=== PATIENT | male | born 1990 | race Caucasian/White ===

== ENCOUNTER 2018-02-03 23:11 | Emergency (ER) | payer SELFPAY ==
[2018-02-03 23:31] VITALS: BP 150/92
== END 2018-02-04 02:30 | disposition left against medical advice (07) ==
LOC: ED 23:11
DX: R07.9 Chest pain, unspecified (principal); Z53.21 Procedure and treatment not carried out due to patient leaving prior to being seen by health care provider
CPT/HCPCS: 93005; 93010